=== PATIENT | female | born 1985 | race Caucasian/White ===

== ENCOUNTER 2018-05-15 22:50 | Outpatient (CLI) | payer MEDICAID ==
[2018-05-16] MEDS: TERBUTALINE 1 MG/ML INJ SC (00:06)
[2018-05-16 00:46] LABS: ADD UMIC NO; UR ASCORBIC ACID NEGATIVE (NEGATIVE); UR BILIRUBIN (Dip) NEGATIVE (NEGATIVE); UR BLOOD (Dip) NEGATIVE (NEGATIVE); UR CLARITY CLEAR (CLEAR); UR COLOR COLORLESS (YELLOW); UR GLUCOSE (Dip) NEGATIVE (NEGATIVE); UR KETONES (Dip) NEGATIVE (NEGATIVE); UR LEUKOCYTE ESTERASE (Dip) NEGATIVE Leu/ul (NEGATIVE); UR NITRITE (Dip) NEGATIVE (NEGATIVE); UR SPECIFIC GRAVITY (Dip) 1.001 (1.003-1.030); UR TOTAL PROTEIN (Dip) NEGATIVE (NEGATIVE); UR UROBILINOGEN (Dip) NEGATIVE (NEGATIVE)
== END 2018-05-16 01:17 | disposition home or self-care (01) ==
LOC: OBT 22:50 → L-D 22:51
DX: O47.03 False labor before 37 completed weeks of gestation, third trimester (principal); Z3A.36 36 weeks gestation of pregnancy
CPT/HCPCS: 81003; 96372

== ENCOUNTER 2018-06-02 14:02 | Inpatient (IN) | payer MEDICAID ==
[2018-06-02] MEDS: AMPICILLIN 2 GM/NS (PMX) 100 ML IV (14:30)
[2018-06-02] MEDS ORDERED: MISOPROSTOL 200 MCG TAB PR ×2 (14:30→16:30)
[2018-06-02] MEDS ORDERED: METHYLERGONOVINE 0.2 MG INJ IM ×2 (14:30→16:30)
[2018-06-02] MEDS ORDERED: OXYTOCIN 30 UNITS/LR 500 ML IV (14:30)
[2018-06-02] MEDS: LACTATED RINGER'S 1,000 ML IV* (14:30)
[2018-06-02] MEDS ORDERED: LIDOCAINE 1% (MPF) 30 ML INJ INJ (14:30)
[2018-06-02] MEDS ORDERED: CARBOPROST 250 MCG INJ IM ×2 (14:30→16:30)
[2018-06-02 14:37] LABS: ADD MAN DIFF? NO
[2018-06-02 14:39] LABS: BASOPHILS % 0.1 % (0.0-2.0); EOSINOPHILS # 0.1 10^3/ul (0.0-0.5); EOSINOPHILS % 0.7 % (0.0-7.0); HEMATOCRIT 39.6 % (37.0-47.0); HEMOGLOBIN 13.2 g/dl (12.0-16.0); LYMPHOCYTES # 1.8 10^3/ul (0.8-2.9); LYMPHOCYTES % 25.4 % (15.0-51.0); MEAN CORPUSCULAR HEMOGLOBIN 31.8 pg (29.0-33.0); MEAN CORPUSCULAR HGB CONC 33.3 g/dl (32.0-37.0); MEAN CORPUSCULAR VOLUME 95.4 fl (82.0-101.0); MEAN PLATELET VOLUME 11.4 fl (7.4-10.4); MONOCYTE # 0.4 10^3/ul (0.3-0.9); MONOCYTES % 5.6 % (0.0-11.0); NEUTROPHIL # 4.7 10^3/ul (1.6-7.5); NEUTROPHILS % 67.8 % (39.0-77.0); PLATELET COUNT 203 10^3/UL (140-415); RED BLOOD COUNT 4.15 10^6/ul (4.20-5.40); RED CELL DISTRIBUTION WIDTH 13.2 % (11.5-14.5)
[2018-06-02] MEDS: OXYTOCIN 30 UNITS/LR 500 ML IV ×3 (14:47→18:18)
[2018-06-02 14:59] LABS: PROTIME 12.2 Sec (11.9-14.9)
[2018-06-02 15:00] LABS: PARTIAL THROMBOPLASTIN TIME 24.8 Sec (25.0-35.0)
[2018-06-02] MEDS: IBUPROFEN 600 MG TAB PO ×2 (15:22→18:09)
[2018-06-02] MEDS ORDERED: OXYCODONE/ASPIRIN (4.88/325) TAB PO (16:30)
[2018-06-02] MEDS ORDERED: ZOLPIDEM 5 MG TAB PO (16:30)
[2018-06-02] MEDS: BENZOCAINE 20% 56 ML SPRAY TOP (18:10)
[2018-06-02] MEDS: LANOLIN 7 GM TUBE TOP (18:10)
[2018-06-02] MEDS: WITCH HAZEL/GLYCERIN PAD PR (18:10)
[2018-06-02] MEDS ORDERED: AMPICILLIN 1 GM/NS (PMX) 50 ML IV (18:30)
[2018-06-02 19:40] LABS: RAPID PLASMA REAGIN NONREACTIVE (NR)
[2018-06-02] MEDS: SENNA/DOCUSATE NA (8.6MG/50MG) TAB PO ×2 (21:00→22:33)
[2018-06-03] MEDS: IBUPROFEN 600 MG TAB PO ×5 (00:03→23:28)
[2018-06-03 08:28] LABS: ADD MAN DIFF? NO
[2018-06-03 08:35] LABS: BASOPHILS % 0.3 % (0.0-2.0); EOSINOPHILS # 0.2 10^3/ul (0.0-0.5); EOSINOPHILS % 2.4 % (0.0-7.0); HEMATOCRIT 36.1 % (37.0-47.0); HEMOGLOBIN 12.1 g/dl (12.0-16.0); LYMPHOCYTES # 2.5 10^3/ul (0.8-2.9); LYMPHOCYTES % 36.9 % (15.0-51.0); MEAN CORPUSCULAR HEMOGLOBIN 32.5 pg (29.0-33.0); MEAN CORPUSCULAR HGB CONC 33.5 g/dl (32.0-37.0); MEAN PLATELET VOLUME 11.8 fl (7.4-10.4); MONOCYTE # 0.4 10^3/ul (0.3-0.9); MONOCYTES % 6.3 % (0.0-11.0); NEUTROPHIL # 3.6 10^3/ul (1.6-7.5); NEUTROPHILS % 53.5 % (39.0-77.0); PLATELET COUNT 149 10^3/UL (140-415); RED BLOOD COUNT 3.72 10^6/ul (4.20-5.40); RED CELL DISTRIBUTION WIDTH 13.1 % (11.5-14.5)
[2018-06-03 08:35] LABS: WHITE BLOOD COUNT 6.8 10^3/ul (4.8-10.8)
[2018-06-03] MEDS: SENNA/DOCUSATE NA (8.6MG/50MG) TAB PO ×2 (09:08→20:45)
[2018-06-03] MEDS: OXYCODONE/ASPIRIN (4.88/325) TAB PO (20:45)
[2018-06-04] MEDS: IBUPROFEN 600 MG TAB PO ×3 (06:17→12:00)
[2018-06-04] MEDS: SENNA/DOCUSATE NA (8.6MG/50MG) TAB PO (09:00)
[2018-06-04] MEDS: DIPHTH/TET/ACEL PERTUSS (ADULT) 0.5 ML VIAL IM* (14:09)
== END 2018-06-04 14:50 | disposition home or self-care (01) | DRG 775 ==
LOC: OBT 14:02 → L-D 14:02 → OBT 14:11 → L-D 14:13 → PP1 16:24
PROVIDERS: Obstetrics & Gynecology
PROC: 10E0XZZ Delivery of Products of Conception, External Approach (ICD-10-PCS; principal; 2018-06-02)
DX: O69.3XX0 Labor and delivery complicated by short cord, not applicable or unspecified (principal); Z3A.39 39 weeks gestation of pregnancy; Z37.0 Single live birth; Z23 Encounter for immunization
CPT/HCPCS: 85025; 85610; 85730; 86592; 86850; 86900; 86901; 90715